=== PATIENT | male | born 1965 | race Caucasian/White ===

== ENCOUNTER 2016-08-25 10:29 | Observation (INO) | payer OTHER ==
[~2016-08-25] VITALS: Ht 177.8 cm; Wt 103.1 kg
[2016-08-25 11:15] LABS: HEMATOCRIT 43.5 % (42-52); MEAN CELL VOLUME 91.6 fL (80-100); MEAN CORPUSCULAR HEMOGLOBIN 31.8 pg (25-34); MEAN CORPUSCULAR HGB CONC 34.7 g/dl (32-36); MEAN PLATELET VOLUME 9.6 fL (7.4-10.4); PLATELET COUNT 150 K/uL (130-400); RED BLOOD COUNT 4.75 M/uL (4.7-6.1)
--- NOTE | 2016-08-25 11:24 | DIAGNOSTIC IMAGING REPORT ---
CHEST ONE VIEW PORTABLE CLINICAL HISTORY: ed dyspnea COMPARISON STUDY: No previous studies for comparison. FINDINGS: The bones soft tissues and hemidiaphragms are normal. The cardiomediastinal silhouette is normal. The lungs are clear. The pulmonary vasculature is normal. IMPRESSION: Negative chest. Electronically signed by: Gaurang Lopez M.D. 08/25/2016 11:22 AM Dictated Date/Time: 08/25/2016 11:18 AM
[2016-08-25 11:27] LABS: PROTHROMBIN TIME (PATIENT) 10.4 SECONDS (9.0-12.0)
[2016-08-25 11:36] LABS: BUN/CREATININE RATIO 19.4 (10-20); CALCIUM 8.3 mg/dl (8.5-10.1); CREATININE 0.92 mg/dl (0.60-1.40); POTASSIUM 3.8 mmol/L (3.5-5.1)
[2016-08-25 11:44] LABS: ALB/GLOB RATIO 1.3 (0.9-2)
[2016-08-25] MEDS ORDERED: ESCI1TAB10 PO (11:54)
[2016-08-25] MEDS ORDERED: ATOR10TA82 PO (11:54)
[2016-08-25] MEDS ORDERED: VST25HP (11:54)
[2016-08-25] MEDS ORDERED: LISI-461 PO (11:54)
[2016-08-25] MEDS ORDERED: ASPI325T39 PO (11:54)
[2016-08-25] MEDS ORDERED: SODIUM CHLORIDE 0.9% 1000ML 1,000 ML IV STA (11:55)
[2016-08-25] MEDS ORDERED: MoRPHine SULFATE 2 MG/ML CARP IV STA (11:55)
[2016-08-25] MEDS ORDERED: ONDANSETRON INJ 2 MG/ML 2 ML VIAL IV STA (11:55)
[2016-08-25] MEDS ORDERED: ALUMINUM/MAGNESIUM/SIMETH (MAALOX MAX) 30 ML UDC PO PRN (12:45)
[2016-08-25] MEDS ORDERED: NITROGLYCERIN 0.4 MG SL PER TAB CHARGE SL PRN (12:45)
[2016-08-25] MEDS ORDERED: MAGNESIUM HYDROXIDE SUSP 30 ML UDC PO PRN (12:45)
[2016-08-25] MEDS ORDERED: POLYETHYLENE (MIRALAX) 17 GM PACK PO PRN (12:45)
[2016-08-25] MEDS ORDERED: ACETAMINOPHEN 325 MG TAB PO PRN (12:45)
[2016-08-25] MEDS ORDERED: ZOLPIDEM TARTRATE 5 MG TAB PO PRN (12:45)
[2016-08-25 13:28] VITALS: O2SAT 98; Ht 177.8 cm; Wt 103.1 kg
--- NOTE | 2016-08-25 13:36 | HISTORY & PHYSICAL EXAMINATION ---
DATE OF ADMISSION: 08/25/2016 ADMISSION CHIEF COMPLAINT: Chest pain. HISTORY OF PRESENT ILLNESS: The patient is a 50-year-old who is in [facility], came accompanied by present guards complaining of pain, started this morning. As per patient, he states that pain woke him up from sleep around 7:00 a.m. and since then he has this substernal chest heaviness, he graded as an 8/10 in intensity. Pain is referred to his left shoulder and arm. Pain is accompanied by palpitation, diaphoresis, shortness of breath and worsened by taking deep breath, also has some dizziness with the pain that currently resolved. EKG at the shelter was good. He was brought by ambulance, received nitroglycerin that states that improved the pain, but did not completely take it off. In ED, he received another nitroglycerin which led to his blood pressure to drop slightly systolic was 80 but came back within 5 minutes. Admits to having chills last night. Other than that, no any associated symptoms. No relieving factors. REVIEW OF SYSTEMS: No headache, double vision, blurry vision. No cough, wheezing, shortness of breath, no diarrhea, blood in the stool, no burning in the urine or blood. No vomiting or nausea. No focal weakness, tingling, numbness. Rest of the review of system is negative. PAST MEDICAL HISTORY: Hypertension, seizure disorder, drug abuse, depression, dyslipidemia, rotator cuff syndrome and nonspecific abdominal pain. ALLERGIES: TRAMADOL, TORADOL, PROZAC, SEROQUEL AND LARGE DOSES OF IBUPROFEN BUT HE STATED HE TAKES SMALL DOSES OF IBUPROFEN NEEDED. FAMILY HISTORY: His father did have a single CABG at age 40 and then at age 50, had a triple CABG. Also, he had an aunt that had diabetes. SOCIAL HISTORY: He is a current smoker, does not drink alcohol. MEDICATIONS: Aspirin, Lipitor 10 mg, Lexapro 20 mg and lisinopril 10 mg. PHYSICAL EXAMINATION: HEENT: No jaundice, no pallor with mucous membranes. NECK: Supple. HEART: S1, S2 normal. No gallop, rub or murmur. LUNGS: Clear to auscultation bilaterally. Normal chest wall expansion. ABDOMEN: Soft, nontender, nondistended. NEUROLOGIC: Awake, alert, oriented to time, place, and person. Moves all extremities. Sensation intact. Cranial nerves II-XII appear to be intact. VITAL SIGNS: Temperature 37, heart rate is 60, respirations 18, blood pressure 120/67, saturation 95% on room air. LABORATORY DATA: White blood cell count 4.4, hemoglobin is 15 and platelet count is 150. Creatinine 0.9, BUN is 18. Total bilirubin is 0.3. Sodium is 143, potassium is 3.8. First set of troponin is negative. IMAGING DATA: Chest x-ray was obtained and showed no acute event. EKG was normal sinus rhythm with nonspecific ST-T wave changes. ASSESSMENT: 1. Chest pain, rule out acute coronary syndrome. 2. Hypertension. 3. Dyslipidemia. 4. Depression. 5. Seizure disorder. PLAN: 1. Admit patient to telemetry. 2. N.p.o. from midnight. 3. Start aspirin and statin. 4. Serial cardiac enzymes. 5. Sublingual nitroglycerin as needed. 6. Morphine IV for pain. 7. Cardiology consult. Plan n.p.o. from midnight for possible stress test in a.m. 8. Pepcid for GI prophylaxis and heparin for DVT prophylaxis. 9. Obtain lipids and hemoglobin A1c to stratify his risk. 10. Obtain labs in a.m. 11. Obtain D-dimer to rule out PE. JEAN
[2016-08-25] MEDS ORDERED: IV FLUIDS COMPLETED PRN (13:45)
[2016-08-25] MEDS: MoRPHine SULFATE 2 MG/ML CARP IV PRN ×5 (14:11→23:03)
[2016-08-25 14:34] VITALS: BP 106/69; PULSE 60; TEMP 36.8; O2SAT 97
[2016-08-25] MEDS: FAMOTIDINE IV INJ 20 MG in DEXTROSE 5% 100ML 100 ML IV SCH (15:27)
[2016-08-25] MEDS: SODIUM CHLORIDE 0.9% 1000ML 1,000 ML IV SCH (15:27)
[2016-08-25] MEDS: NITROGLYCERIN 2% OINTMENT 30GM TUBE EXT SCH ×2 (15:28→21:08)
[2016-08-25] MEDS ORDERED: METOPROLOL TARTRATE 25 MG TAB PO ONE (15:30)
[2016-08-25 15:42] VITALS: BP 110/75; PULSE 56; TEMP 36.6; O2SAT 96
[2016-08-25 16:00] VITALS: O2SAT 96
[2016-08-25] MEDS ORDERED: ENOXAPARIN 40 MG/0.4 ML SYR SC SCH (16:00)
--- NOTE | 2016-08-25 19:33 | CARDIOLOGY CONSULTATION REPORT ---
DATE OF CONSULTATION: 08/25/2016 REASON FOR CONSULTATION: 1. Chest pressure x 7.5 hours. 2. Dyslipidemia. 3. Hypertension. 4. Strong family history of premature CAD. HISTORY OF PRESENT ILLNESS: Mr. Underwood is a 50-year-old white male, currently incarcerated at [facility], who presents acutely today through the Emergency Room with a complaint of chest pain. This is described as a heaviness in his anterior chest, which seems to radiate to his left arm and shoulder, and he has noted some associated diaphoresis. This discomfort awakened him from sleep at approximately 0700 and has been persistent throughout the day. The pain is made worse by taking a deep breath, but it is not worsen with exertion. He did receive sublingual nitroglycerin x1 dose, which did not seem to help his discomfort. He received a second dose of nitroglycerin, which resulted in a headache and some hypotension. He continues to have the chest discomfort at the present time. Thus far his EKG shows normal sinus rhythm, no acute changes. His initial troponin I level is less than 0.030 ng/mL with a total CK of 100 and a CK-MB of 1.0. The patient offers no other complaints. He denies any fevers recently, but he did have chills last evening. He denies any cough or sputum production. No hemoptysis. He denies any orthopnea or PND. No syncope or near syncope. PAST MEDICAL HISTORY: 1. Longstanding Hypertension. 2. Dyslipidemia, on long-term statins for approximately 10 years. 3. Seizure disorder. 4. History of drug abuse. 5. Depression. 6. Ongoing nicotine dependence. 7. Obesity. SOCIAL HISTORY: The patient is currently incarcerated at [facility]. He smokes approximately 8-10 cigarettes per day. Does not drink alcohol at the present time. No current drug use. FAMILY HISTORY: Father had single vessel CABG at the age of 40, then had CABG x 3 vessels at the age of 50. He had an aunt with type 2 diabetes mellitus. MEDICATIONS: 1. Aspirin 325 mg daily. 2. Lipitor 10 mg daily. 3. Lexapro 20 mg a day. 4. Lisinopril 10 mg daily. 5. Lovenox 40 mg subcutaneous injection q.24 hours. 6. Nitroglycerin ointment 2% 1 inch applied to the anterior chest wall q.6 hours. 7. IV Pepcid 20 mg q.12 hours. 8. Tylenol 650 mg p.o. q.4 hours p.r.n. for pain or fever. 9. Maalox Max p.r.n. 10. Milk of magnesia p.r.n. 11. Ambien 5 mg at bedtime p.r.n. for sleep. 12. Sublingual nitroglycerin 0.4 mg as directed. 13. Morphine sulfate 2 mg IV q.30 minutes p.r.n. for chest pain. 14. MiraLax 17 g daily as needed for constipation. 15. Normal saline at 50 mL per hour. ALLERGIES: 1. Doxepin. 2. Fluoxetine. 3. Ibuprofen. 4. Ketorolac. 5. Seroquel. 6. Tramadol. PHYSICAL EXAMINATION: VITAL SIGNS: Temperature is 36.8 degrees Celsius, pulse is 60 and regular, respiratory rate is 14 and unlabored, blood pressure is 106/69, SpO2 is 97% on room air. GENERAL: The patient is in no acute distress. HEENT: Head is atraumatic, normocephalic. EOMs intact. Sclerae are anicteric. Face is symmetric. No perioral cyanosis. Mucous membranes moist. NECK: Without thyromegaly, adenopathy or JVD. Carotid upstrokes +2 bilaterally without bruits. CHEST AND LUNGS: Clear to auscultation throughout all lung ross. No wheezes, rales or rhonchi. CARDIOVASCULAR: S1 and S2 are regular, distant, without obvious murmur, gallop or rub. PMI is nonpalpable. No lifts, heaves, or thrills. No abdominal, aortic or renal bruits. ABDOMEN: Bowel sounds present. No masses, organomegaly, or tenderness. EXTREMITIES: Without clubbing, cyanosis or edema. Intact radial and posterior tibial pulses bilaterally. NEUROLOGIC: The patient is awake, alert and oriented. Pleasant and cooperative. Answers questions appropriately. Speech is clear. Normal movement in all 4 extremities. Gait pattern not assessed. EKG on admission shows normal sinus rhythm with a rate of 66 beats per minute, nonspecific T-wave abnormality in leads III and aVF. No acute changes. Current telemetry monitoring reveals sinus rhythm with sinus bradycardia. No significant ectopy present. Chest x-ray shows no acute cardiopulmonary process. LABORATORIES: Sodium is 143 mmol/L, potassium 3.8 mmol/L, BUN 18 mg/dL, and creatinine is 0.92 mg/dL. Random glucose 97 mg/dL. LFTs are unremarkable. Total CK is 100 with a CK-MB of 1.0 ng/mL. Point of care troponin I is less than 0.030 ng/mL. White blood cell count is 4.40, hemoglobin 15.1 g/dL, hematocrit 43.5%, and platelet count 150,000. ASSESSMENT: 1. Anterior chest pressure with associated diaphoresis and radiation to the left shoulder and arm x > 7 hours with negative initial cardiac enzymes. 2. His chest discomfort has a pleuritic component to it. 3. No acute changes on EKG. 4. Hypertension. 5. Well controlled dyslipidemia per patient. Has been on long-term statin therapy. 6. Nicotine dependence. 7. Family history of premature coronary artery disease. PLAN: 1. The patient has been admitted to the telemetry floor for acute chest pain, rule out acute coronary syndrome. 2. Monitor serial cardiac enzymes. 3. Serial EKGs. 4. Continue Lipitor 10 mg a day. 5. Continue Lisinopril 10 mg daily. 6. Continue topical nitrates for the time being. 7. Recommend Aspirin 325 mg daily and he should also continue on at least a baby Aspirin daily thereafter for primary prevention. 8. Add low-dose beta-charlene - Lopressor 25 mg bid. 9. If cardiac enzymes remain negative, and EKG show no acute changes, will recommend a stress echocardiogram to further evaluate for myocardial ischemia tomorrow; however, if he has any dynamic EKG changes, or a bump in his cardiac enzymes, would strongly consider cardiac catheterization based on his family history and tobacco use. 10. We will continue to closely follow. JEAN
[2016-08-25 19:49] VITALS: BP 99/67; PULSE 55; TEMP 36.9; O2SAT 94
[2016-08-25] MEDS: METOPROLOL TARTRATE 25 MG TAB PO SCH (21:00)
--- NOTE | 2016-08-25 22:11 | EMERGENCY ROOM VISIT NOTE ---
ED Visit Note First contact with patient: 11:41 Chief Complaint: Chest pain. History of Present Illness: Mr. Underwood is a 50 year-old white male who is brought into the ED via ambulance accompanied by 2 long-term guards complaining of chest pain. Historically patient reports he personally does not have a history of heart disease but he does have hypertension, dyslipidemia and is a smoker. He reports his father had his first PR at age 40 and required a single CABG and at age 56 required a triple CABG. Patient reports he has been generally feeling well the last few days. He did report last evening he had some mild nausea and reports he had a few episodes of diaphoresis. This morning approximately 7:30 AM he reports he was sleeping and was awoken from sleep with an acute onset of midsternal chest pain. His onset was approximately 3 hours before he arrived in the emergency department. Since that time his pain has been constant. He describes his pain as if someone is standing on his chest and pressure. His pain is radiating into the left chest and left shoulder. He has not identified any aggravating or alleviating factors related to the pain. While at the long-term and during transport he received 2 sublingual mitral glycerin tablets and aspirin without relief of his discomfort. Currently associated with his pain he reports he is nauseated but has not vomited. Patient denies fevers, chills, sweats, skin eruptions, skin color changes, upper respiratory tract symptoms, wheezing, cough, shortness of breath, orthopnea, dependent edema, previous clots, claudication, cramping, recent surgery/inactivity/extended travel, abdominal pain, diarrhea, constipation, rectal bleeding, black/tarry stools, urinary symptoms, back/flank pain. Review of Systems: As noted above in history of present illness. All body systems were reviewed and found to be negative as noted above. Past Medical History: As previously noted, nonspecific abdominal pain, rotator cuff syndrome, seizure disorder, cannabis/cocaine/opiate abuse, depression. Current Medications: Medications Dose Route/Sig Max Daily Dose Days Date Category Lexapro (Escitalopram Oxalate) 20 Mg Tab 20 Mg PO DAILY 08/25/16 Reported Hydroxyzine Pamoate (Hydroxyzine HCl) 25 Mg Tab BID 08/25/16 Reported Zestril (Lisinopril) 10 Mg Tab 10 Mg PO 08/25/16 Reported Lipitor (Atorvastatin Calcium) 10 Mg Tab 1 Tab PO DAILY 30 08/25/16 Reported Aspirin Ec (Aspirin) 325 Mg Tab 325 Mg PO 08/25/16 Reported Allergies to Medications: Tramadol, Toradol, Prozac, Seroquel, ibuprofen. Social History: Patient is currently incarcerated; he admits to tobacco use. Physical Examination: Vital Signs: Date Time Temp Pulse Resp B/P (MAP) Pulse Ox O2 Delivery O2 Flow Rate FiO2 08/25/16 12:49 53 21 98 08/25/16 12:34 53 18 97 08/25/16 12:31 101/75 08/25/16 12:19 57 23 93 08/25/16 12:04 61 25 97 08/25/16 12:01 105/73 08/25/16 11:54 108/76 08/25/16 11:53 60 14 108/76 98 08/25/16 11:49 70 22 96 08/25/16 11:44 62 19 95 08/25/16 11:32 89/66 08/25/16 11:29 60 24 97 08/25/16 11:14 60 26 95 08/25/16 11:13 95 Room Air 08/25/16 11:13 37.0 62 18 110/67 95 Room Air 08/25/16 11:10 97 Room Air 08/25/16 11:01 105/67 08/25/16 10:59 63 18 08/25/16 10:44 66 12 94 08/25/16 10:37 66 08/25/16 10:33 110/67 GENERAL: 50-year-old male in mild distress due to pain, nontoxic-appearing, afebrile and hemodynamically stable. NEUROLOGICAL: Awake, alert and oriented to person, place and time. Answering questions appropriately and following commands. Normal gait. Good hand eye coordination. SKIN: Warm, dry and pink. No soft tissue eruptions or trauma noted. HEENT: Atraumatic and normocephalic. PERRLA. Sclera white and conjunctiva pink. Oral cavity moist and pink. Airway is patent. Pharynx is nonerythematous or edematous. Speech normal. No lymphadenopathy. Trachea midline. No jugular venous distention. No carotid bruits. BACK: No tenderness over the bony spine. No CVA tenderness. THORAX: Lungs sounds are clear to auscultation and equal bilaterally with symmetrical chest wall. No wheezing, rales or rhonchi. No crepitus, tenderness , subcutaneous air or deformities noted. HEART: Regular rate and rhythm. No gallops, rubs or murmurs are appreciated. No lifts, heaves or thrills. PMI is not displaced. ABDOMEN: Flat, soft and nontender. Positive bowel sounds in all quadrants. No guarding, rigidity or organomegaly. EXTREMITIES: Moves all extremities well on command and with purpose. All distal neurovascular statuses are intact and equal bilaterally. No dependent edema or calf tenderness/cords. ED Course: Patient is assessed as noted above. Patient's medication list was reviewed. Laboratory Testing: Test 08/25/16 10:55 08/25/16 11:05 Range/Units White Blood Count 4.40 4.8-10.8 K/uL Red Blood Count 4.75 4.7-6.1 M/uL Hemoglobin 15.1 14.0-18.0 g/dL Hematocrit 43.5 42-52 % Mean Corpuscular Volume 91.6 80-100 fL Mean Corpuscular Hemoglobin 31.8 25-34 pg Mean Corpuscular Hemoglobin Concent 34.7 32-36 g/dl RDW Standard Deviation 46.1 36.4-46.3 fL RDW Coefficient of Variation 13.7 11.5-14.5 % Platelet Count 150 130-400 K/uL Mean Platelet Volume 9.6 7.4-10.4 fL Prothrombin Time 10.4 9.0-12.0 SECONDS Prothromb Time International Ratio 1.0 0.9-1.1 Activated Partial Thromboplast Time 25.7 21.0-31.0 SECONDS Partial Thromboplastin Ratio 1.0 Sodium Level 143 136-145 mmol/L Potassium Level 3.8 3.5-5.1 mmol/L Chloride Level 111 98-107 mmol/L Carbon Dioxide Level 24 21-32 mmol/L Anion Gap 8.0 3-11 mmol/L Blood Urea Nitrogen 18 7-18 mg/dl Creatinine 0.92 0.60-1.40 mg/dl Est Creatinine Clear Calc Drug Dose 116.7 ml/min Estimated GFR () 112.8 Estimated GFR (Non- 97.3 BUN/Creatinine Ratio 19.4 10-20 Random Glucose 97 70-99 mg/dl Calcium Level 8.3 8.5-10.1 mg/dl Total Bilirubin 0.3 0.2-1 mg/dl Aspartate Amino Transf (AST/SGOT) 20 15-37 U/L Alanine Aminotransferase (ALT/SGPT) 42 12-78 U/L Alkaline Phosphatase 69 45-117 U/L Total Creatine Kinase 100 39-308 U/L Creatine Kinase MB 1.0 0.5-3.6 ng/ml Creatine Kinase MB Ratio 1.0 0-3.0 Total Protein 6.7 6.4-8.2 gm/dl Albumin 3.8 3.4-5.0 gm/dl Globulin 2.9 2.5-4.0 gm/dl Albumin/Globulin Ratio 1.3 0.9-2 Bedside Troponin I < 0.030 0-0.045 ng/ml Chest X-Ray: Was read by myself and the radiologist showing no acute infiltrates , effusions or pneumothorax. Normal heart silhouette and bony anatomy. No vascular changes. No previous to compare. EKG: Was read by myself and reviewed with Dr. Kennedy; shows normal sinus rhythm with ventricular rate of 66 bpm. Normal axis, intervals and complexes. No acute ST changes indicating ischemia, injury and infarction. This was compared to previous EKGs from the long-term and during transport no acute changes were noted. On arrival to the ED patient received 1 0.4 mg sublingual nitroglycerin tablet; he reported no relief of his discomfort but he did receive a mild headache. Patient was hydrated with normal saline and was given 2 mg of morphine IV for pain and 4 mg of Zofran IV for nausea. Patient was reassessed multiple times during his stay in the emergency department. Patient's case was reviewed with Dr. Kennedy; we agreed on diagnostic approach , treatment, disposition and plan. Patient's case was consulted with case management and Dr. Bunch, hospitalist ; for medical observation/admission. Patient was educated about today's findings. Clinical Impression: Acute chest pain. Decision-Making: Initially my differential diagnosis I considered acute coronary syndrome, thoracic aneurysm, pneumothorax, pneumonia, pulmonary embolism, musculoskeletal disorder and other causes. Disposition and Plan: Patient be brought in the hospital for observation/ admission for further evaluation of his chest pain.
[2016-08-25 23:11] VITALS: BP 120/80; PULSE 53; TEMP 36.5; O2SAT 96
[2016-08-26] MEDS: MoRPHine SULFATE 2 MG/ML CARP IV PRN ×8 (01:06→16:26)
[2016-08-26 02:13] VITALS: BP 102/58; PULSE 55
--- NOTE | 2016-08-26 02:26 | Progress Note ---
Progress Note Date of Service Aug 26, 2016. Progress Note I was paged at approximately 1:00 to notify me that the patient was continuing to have chest pain similar to that on arrival. I requested a repeat EKG be done and I would arrive at the bedside to assess the patient. Patient states that his chest pain is unchanged when he arrived. He describes a pressure pain, mid sternum, going up to the left shoulder. He notes that he gets worse with changing position, or twisting shoulders. All vital signs were stable, patient was not hypoxic S1 and S2 were normal no added sounds or murmurs. Mild tenderness was noted in the pectoral muscle towards the left shoulder, otherwise no tenderness EKG was reviewed: Bradycardia, otherwise normal sinus rhythm EKG was compared to that on arrival and no change was noted school lunch monitor was reviewed, there were no arrhythmias Troponins have been negative 2. Last troponin was drawn yesterday at 1850. Next trop due 0645. There are no new EKG changes and troponins of been negative so far, therefore I will continue to observe the patient at this time. If troponins come back positive, we can start a heparin infusion. It is noted on his record that he will have stress testing tomorrow. I will continue to follow.
[2016-08-26 02:36] LABS: BASO % 0.5 %; BASO ABS # 0.03 K/uL (0-0.2); COMPLETE YES; EOS % 2.6 %; HEMATOCRIT 43.7 % (42-52); IG% 0.3 %; LYMPH % 43.9 %; LYMPH ABS # 2.54 K/uL (1.2-3.4); MEAN CELL VOLUME 93.2 fL (80-100); MEAN CORPUSCULAR HEMOGLOBIN 30.5 pg (25-34); MEAN CORPUSCULAR HGB CONC 32.7 g/dl (32-36); MEAN PLATELET VOLUME 9.4 fL (7.4-10.4); MONO % 7.3 %; NEUT % 45.4 %; PLATELET COUNT 151 K/uL (130-400); RED BLOOD COUNT 4.69 M/uL (4.7-6.1); WHITE BLOOD COUNT 5.79 K/uL (4.8-10.8)
[2016-08-26] MEDS: FAMOTIDINE IV INJ 20 MG in DEXTROSE 5% 100ML 100 ML IV SCH (03:07)
[2016-08-26] MEDS: NITROGLYCERIN 2% OINTMENT 30GM TUBE EXT SCH ×2 (03:07→10:29)
[2016-08-26 03:11] LABS: ALB/GLOB RATIO 1.2 (0.9-2); ALKALINE PHOSPHATASE 65 U/L (45-117); ALT/SGPT 41 U/L (12-78); AST/SGOT 17 U/L (15-37); BLOOD UREA NITROGEN 16 mg/dl (7-18); CALCIUM 8.1 mg/dl (8.5-10.1); CARBON DIOXIDE 28 mmol/L (21-32); CHLORIDE 112 mmol/L (98-107); CHOLESTEROL 187 mg/dl (0-200); CHOLESTEROL/HDL RATIO 4.1; GLUCOSE 103 mg/dl (70-99); HDL CHOLESTEROL 46 mg/dl; LDL CHOLESTEROL CALCULATED 110 mg/dl; MAGNESIUM 2.3 mg/dl (1.8-2.4); PHOSPHORUS 3.5 mg/dl (2.5-4.9); POTASSIUM 4.9 mmol/L (3.5-5.1); SODIUM 145 mmol/L (136-145); TRIGLYCERIDES 155 mg/dl (0-150); VERY LOW DENSITY LIPOPROT CALC 31 mg/dl
[2016-08-26 03:17] VITALS: BP 103/65; PULSE 71; TEMP 36.8; O2SAT 93
[2016-08-26 06:42] LABS: ESTIMATED AVERAGE GLUCOSE 114 mg/dl; HA1C FLAG Normal (Normal)
[2016-08-26 07:12] VITALS: BP 108/69; PULSE 50; TEMP 36.6; O2SAT 94
[2016-08-26] MEDS: METOPROLOL TARTRATE 25 MG TAB PO SCH (07:40)
[2016-08-26] MEDS: SODIUM CHLORIDE 0.9% 1000ML 1,000 ML IV SCH (08:39)
[2016-08-26] MEDS ORDERED: ATORVASTATIN 10 MG TAB PO SCH (09:00)
[2016-08-26] MEDS ORDERED: LISINOPRIL 10 MG TAB PO SCH (09:00)
[2016-08-26] MEDS ORDERED: ESCITALOPRAM OXALATE 20 MG TAB PO SCH (09:00)
[2016-08-26] MEDS ORDERED: ASPIRIN 325 MG ECTAB PO SCH (09:00)
[2016-08-26] MEDS ORDERED: ZONI100C39 PO (09:10)
--- NOTE | 2016-08-26 10:55 | CARDIOLOGY PROGRESS NOTE ---
DATE: 08/26/2016 This morning Mr. Underwood continues to have an element of chest discomfort, as described it was precordial as well as left lateral. The symptoms had waxed and waned over the past 24 hours without resolve. The narcotic administration seems to have had some effect but once again did not resolve his symptoms entirely. There is an element of pleuritic discomfort with deep inspiration. Movements also seem to affect the symptom. PHYSICAL EXAMINATION: GENERAL: He is alert and oriented. His mood and affect appear normal. He answers all questions appropriately. CURRENT VITAL SIGNS: Include blood pressure of 108/69 with a pulse of 50. LUNGS: Auscultation of his lungs reveals the apices to be clear. CARDIAC: Did not reveal any rubs. LABORATORY STUDIES: Included serial cardiac biomarkers, all of which are less than detectable limit. IMPRESSION: Noncardiac chest pain. While the patient certainly has risk factors for coronary artery disease, the prolonged and unrelenting nature of his symptoms in the absence of elevated cardiac biomarkers precludes the diagnosis of coronary ischemia. EKG is also normal. He did not have any rub or abnormalities on his examination to suggest cardiac etiology. At this point, I would not advocate any additional cardiac testing and seek alternative explanation for his symptoms.
[2016-08-26] MEDS ORDERED: ZONISAMIDE 100 MG CAP PO ONE (11:45)
[2016-08-26 12:14] VITALS: BP 143/59; PULSE 53; TEMP 36.5; O2SAT 98
[2016-08-26] MEDS ORDERED: LPR25 PO (14:57)
[2016-08-26] MEDS ORDERED: RANITAB6 PO (14:57)
--- NOTE | 2016-08-26 15:01 | Discharge Instructions ---
Discharge Instructions Date of Service Aug 26, 2016. Admission Reason for Admission: Chest Pain Discharge Discharge Diagnosis / Problem: Chest pain-noncardiac Discharge Goals Goal(s): Improve disease control, Diagnostic testing, Therapeutic intervention Activity Recommendations Activity Limitations: resume your previous activity Lifting Limitations: none Exercise/Sports Limitations: none Shower/Bathe: no limitations . Instructions / Follow-Up Instructions / Follow-Up You were admitted for chest pain. You did not have a heart attack. You were seen by the Upfitter and no further testing was recommended. Your chest xray was normal and you did not have any evidence of a blood clot in your lungs. This may be related to acid reflux or esophageal spasm. You were started on metoprolol for your blood pressure and heart; you were started on Zantac for acid reflux. You should quit smoking, increase your exercise level, and work on weight loss. Please follow up with your primary care physician upon return to the alf. Current Hospital Diet Patient's current hospital diet: Regular Diet Discharge Diet Recommended Diet: AHA Diet (Heart Healthy) Procedures Procedures Performed: Chest xray Pending Studies Studies pending at discharge: no Laboratory Results Hemoglobin A1c Test 08/25/16 10:55 Range/Units Estimated Average Glucose 114 mg/dl Hemoglobin A1c 5.6 4.5-5.6 % Lipid Panel Test 08/26/16 02:25 Range/Units Triglycerides Level 155 H 0-150 mg/dl Cholesterol Level 187 0-200 mg/dl HDL Cholesterol 46 mg/dl Cholesterol/HDL Ratio 4.1 LDL Cholesterol, Calculated 110 mg/dl Medical Emergencies . Who to Call and When: Medical Emergencies: If at any time you feel your situation is an emergency, please call 911 immediately. . Non-Emergent Contact Non-Emergency issues call your: Primary Care Provider Call Non-Emergent contact if: your pain is not controlled, your pain is worsening, your pain is unusual for you, your pain is concerning you, you have any medication questions . . "Provider Documentation" section prepared by Katey Neville. . VTE Core Measure Inpt VTE Proph given/why not?: Enoxaparin (Lovenox)SQ
[2016-08-26 15:44] VITALS: BP 143/59; PULSE 53; TEMP 36.5; O2SAT 98
[2016-08-26 15:59] VITALS: BP 116/75; PULSE 63; TEMP 36.6; O2SAT 95
[2016-08-26] MEDS ORDERED: ZONISAMIDE 100 MG CAP PO SCH (21:00)
--- NOTE | 2016-08-27 00:16 | Discharge Summary ---
Discharge Summary Date of Service Aug 26, 2016. Discharge Summary Admission Date: Aug 25, 2016 at 12:54 Discharge Date: Aug 26, 2016 Discharge Disposition: Home (Nursing Home) Principal Diagnosis: Chest pain Problems/Secondary Diagnoses: HTN Hyperlipidemia Obesity Current smoker Procedures: Chest xray-negative Consultations: Cardiology Medication Reconciliation New Medications: Ranitidine Hcl (Zantac 150 Maximum Streng) 150 Mg Tab 1 TAB PO BID for 30 Days, #60 TAB Metoprolol Tartrate (Lopressor) 25 Mg Tab 12.5 MG PO BID for 30 Days Continued Medications: Aspirin (Aspirin Ec) 325 Mg Tab 325 MG PO Atorvastatin (Lipitor) 10 Mg Tab 1 TAB PO DAILY for 30 Days, #30 TAB 5 Refills Escitalopram Oxalate (Lexapro) 20 Mg Tab 20 MG PO DAILY, TAB Hydroxyzine HCl (Hydroxyzine Pamoate) 25 Mg Tab BID Lisinopril (Zestril) 10 Mg Tab 10 MG PO, TAB Zonisamide (Zonegran) 100 Mg Cap 300 MG PO BID, CAP Discharge Exam Still having some mild left sided chest pain that feels like a pressure but it is constant. All cardiac markers normal, ECGs normal. He was requesting morphine as often as possible which was concerning for malingering given his history of opioid abuse. He denies any other problems on the day of discharge. Review of Systems: Constitutional: No fever Eyes: No problem reported ENT: No problem reported Respiratory: No shortness of breath Cardiovascular: + chest pain, No edema Abdomen: No pain, No nausea, No vomiting Genitourinary - Male: No problem reported Neurologic: No problem reported Psychiatric: No problem reported Endocrine: No problem reported Hematologic / Lymphatic: No problem reported Integumentary: No problem reported Physical Exam: General Appearance: WD/WN, no apparent distress Eyes: normal inspection, sclerae normal ENT: hearing grossly normal Neck: supple, no JVD, no carotid bruits, trachea midline Respiratory/Chest: lungs clear, normal breath sounds, no respiratory distress, no accessory muscle use Cardiovascular: regular rate, rhythm, no edema, no gallop, no murmur Abdomen / GI: normal bowel sounds, non tender, soft, no organomegaly, no pulsatile mass Extremities: normal inspection, no calf tenderness, normal capillary refill , no pedal edema Neurologic/Psychiatric: no motor/sensory deficits, alert, normal mood/affect , oriented x 3 Skin: normal color, warm/dry, no rash Hospital Course The patient is a 50-year-old who is in [facility], came accompanied by guards complaining of substernal chest pain that woke him up from sleep around 7:00 a.m. and since then he has this substernal chest heaviness, he graded as an 8/10 in intensity. Pain is referred to his left shoulder and arm. Pain is accompanied by palpitation, diaphoresis, shortness of breath and worsened by taking deep breath, also has some dizziness with the pain. EKG at the [facility] was good. He was brought by ambulance, received nitroglycerin that states that mostly just gave him a headache. In ED, he received another nitroglycerin which led to his blood pressure to drop slightly systolic was 80 but came back within 5 minutes. Admits to having chills last night. Other than that, no any associated symptoms. No relieving factors. No cough or cold symptoms. No acid reflux. He had serially negative cardiac biomarkers and no significant event son telemetry monitoring. He consistently asked for morphine every time it was available again and it should be noted he has a diagnosis of opioid abuse previously. ECGs were normal and Cardiology evaluated the patient-they did not feel he warranted any further cardiac eval as he was having atypical chest pain and in setting of normal cardiac biomarkers with constant pain. D-dimer was negative and chest xray was normal. His chest pain may be GI related and he should continue taking Zantac upon discharge. He was started on metoprolol for improved blood pressure control. He was stable for discharge to [facility] as he had ruled out for ACS. He was encouraged to stop smoking and exercise. His HgbA1C was in the prediabetic range. He should remain on all his other home meds. Total Time Spent: Greater than 30 minutes This includes examination of the patient, discharge planning, medication reconciliation, and communication with other providers. Discharge Instructions Please refer to the electronic Patient Visit Report (Discharge Instructions) for additional information. Follow-Up PCP within 1-2 days Additional Copies To LEXIE Huntspeedy
== END 2016-08-26 18:00 ==
LOC: C.EDB 10:33 → C.2T 12:54 → ENRESERV 13:12
PROVIDERS: ADMIT Internal Medicine; ATTEND Family Medicine
DX: R07.9 Chest pain, unspecified (principal); I10 Essential (primary) hypertension; E78.5 Hyperlipidemia, unspecified; E66.9 Obesity, unspecified; F32.9 Major depressive disorder, single episode, unspecified; F17.200 Nicotine dependence, unspecified, uncomplicated; Z79.82 Long term (current) use of aspirin; Z83.3 Family history of diabetes mellitus; Z82.49 Family history of ischemic heart disease and other diseases of the circulatory system

== ENCOUNTER 2017-04-04 00:53 | Emergency (ER) | payer OTHER ==
[~2017-04-04] VITALS: Ht 177.8 cm; Wt 109.0 kg
[~2017-04-04 00:53] MED LIST: ASPI325T39 PO; ATOR10TA82 PO; ESCI1TAB10 PO; LISI-461 PO; LPR25 PO; VST25HP; ZONI100C39 PO
[2017-04-04 01:08] VITALS: BP 126/86; TEMP 37.2; Ht 177.8 cm; Wt 109.0 kg
[2017-04-04] MEDS ORDERED: OPTIRAY 320 IV PRN (01:30)
[2017-04-04 01:50] LABS: BASO % 0.2 %; BASO ABS # 0.01 K/uL (0-0.2); EOS % 2.1 %; EOS ABS # 0.13 K/uL (0-0.5); HEMATOCRIT 47.4 % (42-52); HEMOGLOBIN 16.7 g/dL (14.0-18.0); IG# 0.03 K/uL (0.00-0.02); LYMPH % 44.8 %; LYMPH ABS # 2.74 K/uL (1.2-3.4); MEAN CELL VOLUME 89.9 fL (80-100); MEAN CORPUSCULAR HEMOGLOBIN 31.7 pg (25-34); MEAN CORPUSCULAR HGB CONC 35.2 g/dl (32-36); MONO % 6.2 %; MONO ABS # 0.38 K/uL (0.11-0.59); NEUT % 46.2 %; NEUT ABS # 2.82 K/uL (1.4-6.5); PLATELET COUNT 152 K/uL (130-400); RED CELL DISTRIBUTION WIDTH CV 13.2 % (11.5-14.5); RED CELL DISTRIBUTION WIDTH SD 43.1 fL (36.4-46.3); WHITE BLOOD COUNT 6.11 K/uL (4.8-10.8)
[2017-04-04 02:08] LABS: ALBUMIN 4.3 gm/dl (3.4-5.0); CREATININE 1.09 mg/dl (0.60-1.40); POTASSIUM 3.7 mmol/L (3.5-5.1)
[2017-04-04] MEDS ORDERED: MoRPHine SULFATE 10 MG/ML CARP/VIAL IV STA (02:08)
[2017-04-04 02:10] LABS: TOTAL PROTEIN 7.8 gm/dl (6.4-8.2)
[2017-04-04] MEDS ORDERED: ATOR-22 PO (03:44)
[2017-04-04] MEDS ORDERED: ZNTT/150 PO (03:44)
[2017-04-04] MEDS ORDERED: ACET-1256 PO (03:44)
--- NOTE | 2017-04-04 04:41 | EMERGENCY ROOM VISIT NOTE ---
History First contact with patient: :14 Chief Complaint: ABDOMINAL PAIN Stated Complaint: RT SIDE ABD PAIN Nursing Triage Summary: right sided abdominal pain and bloating History of Present Illness The patient is a 51 year old male who presents to the Emergency Room with complaints of right-sided abdominal pain which began this evening. The patient states that the pain has been gradually worsening throughout the evening. He states the pain is sharp and worse with movement and deep breath. He rates the discomfort an 8/10. [facility] and reports his blood pressure was elevated. He states he has a history of some similar issues and was told at that time that he was having problems with his appendix. He never had surgery for this but did take a course of antibiotics. The patient denies any changes in bowel movements, urinary symptoms, nausea/vomiting or fevers. He denies any history of abdominal surgery. Review of Systems A complete 10 point review of systems was reviewed with the patient with pertinent positives and negatives as per history of present illness. All else were negative. Past Medical/Surgical History Medical Problems: (1) Chest pain (2) Hyperlipidemia (3) Hypertension (4) Seizure disorder Social History Smoking Status: Current Every Day Smoker Alcohol Use: none Drug Use: none Housing Status: other (correctional facility) Current/Historical Medications Scheduled Atorvastatin (Lipitor), 20 MG PO DAILY Lisinopril (Zestril), 10 MG PO DAILY Ranitidine (Zantac), 150 MG PO BID Zonisamide (Zonegran), 300 MG PO BID Scheduled PRN Acetaminophen (Tylenol), 1,000 MG PO TID PRN for Headache Physical Exam Vital Signs Date Time Temp Pulse Resp B/P (MAP) Pulse Ox O2 Delivery O2 Flow Rate FiO2 04/04/17 05:22 58 93 04/04/17 01:08 37.2 76 18 126/86 96 Room Air Physical Exam VITALS: Vitals are noted on the nurse's note and reviewed by myself. Vital signs stable. GENERAL: This is a 51-year-old male, in no acute distress, nondiaphoretic, well- developed well-nourished. SKIN: The skin was without rashes. EARS: External auditory canals clear, tympanic membranes pearly paige without erythema or effusion bilaterally. EYES: Pupils equal round and reactive to light and accommodation. MOUTH: Mucous membranes moist. Tonsils are not enlarged. Pharynx without erythema or exudate. NECK: Supple without nuchal rigidity. No lymphadenopathy. HEART: Regular rate and rhythm without murmurs gallops or rubs. LUNGS: Clear to auscultation bilaterally without wheezes, rales or rhonchi. ABDOMEN: Positive bowel sounds x 4. Soft, nondistended. Tenderness to palpation in the right mid to lower abdomen. No guarding or rebound tenderness. NEURO: Patient was alert and oriented to person place and time. Medical Decision & Procedures ER Provider Diagnostic Interpretation: CT ABDOMEN & PELVIS WITH CONTRAST: No evidence of acute inflammatory or obstructive process in the abdomen or pelvis to account for symptoms. No bowel obstruction, bowel wall thickening, ascites or free air. No evidence of acute appendicitis. Small fat-containing umbilical hernia. No associated inflammatory changes. Small left renal cysts. No hydronephrosis or ureteral calculus. Osseous degenerative changes and age-indeterminate compression fracture deformities in the visualized spine, most prominent at L3. Correlate clinically. Radiologist: Judith Hughes MD Laboratory Results 04/04/17 01:38 Red Blood Count 5.27, Mean Corpuscular Volume 89.9, Mean Corpuscular Hemoglobin 31.7, Mean Corpuscular Hemoglobin Concent 35.2, Mean Platelet Volume 10.0, Neutrophils (%) (Auto) 46.2, Lymphocytes (%) (Auto) 44.8, Monocytes (%) (Auto) 6.2, Eosinophils (%) (Auto) 2.1, Basophils (%) (Auto) 0.2, Neutrophils # (Auto) 2.82, Lymphocytes # (Auto) 2.74, Monocytes # (Auto) 0.38, Eosinophils # (Auto) 0.13, Basophils # (Auto) 0.01 04/04/17 01:38 Test 04/04/17 01:38 04/04/17 03:50 White Blood Count 6.11 K/uL (4.8-10.8) Red Blood Count 5.27 M/uL (4.7-6.1) Hemoglobin 16.7 g/dL (14.0-18.0) Hematocrit 47.4 % (42-52) Mean Corpuscular Volume 89.9 fL (80-100) Mean Corpuscular Hemoglobin 31.7 pg (25-34) Mean Corpuscular Hemoglobin Concent 35.2 g/dl (32-36) Platelet Count 152 K/uL (130-400) Mean Platelet Volume 10.0 fL (7.4-10.4) Neutrophils (%) (Auto) 46.2 % Lymphocytes (%) (Auto) 44.8 % Monocytes (%) (Auto) 6.2 % Eosinophils (%) (Auto) 2.1 % Basophils (%) (Auto) 0.2 % Neutrophils # (Auto) 2.82 K/uL (1.4-6.5) Lymphocytes # (Auto) 2.74 K/uL (1.2-3.4) Monocytes # (Auto) 0.38 K/uL (0.11-0.59) Eosinophils # (Auto) 0.13 K/uL (0-0.5) Basophils # (Auto) 0.01 K/uL (0-0.2) RDW Standard Deviation 43.1 fL (36.4-46.3) RDW Coefficient of Variation 13.2 % (11.5-14.5) Immature Granulocyte % (Auto) 0.5 % Immature Granulocyte # (Auto) 0.03 K/uL (0.00-0.02) Anion Gap 6.0 mmol/L (3-11) Est Creatinine Clear Calc Drug Dose 100.2 ml/min Estimated GFR () 91.2 Estimated GFR (Non- 78.7 BUN/Creatinine Ratio 19.6 (10-20) Calcium Level 9.0 mg/dl (8.5-10.1) Total Bilirubin 0.6 mg/dl (0.2-1) Aspartate Amino Transf (AST/SGOT) 16 U/L (15-37) Alanine Aminotransferase (ALT/SGPT) 40 U/L (12-78) Alkaline Phosphatase 68 U/L (45-117) Total Protein 7.8 gm/dl (6.4-8.2) Albumin 4.3 gm/dl (3.4-5.0) Globulin 3.5 gm/dl (2.5-4.0) Albumin/Globulin Ratio 1.2 (0.9-2) Lipase 139 U/L (73-393) Urine Color YELLOW Urine Appearance CLEAR (CLEAR) Urine pH 5.5 (4.5-7.5) Urine Specific Welcome <= 1.005 (1.000-1.030) Urine Protein NEG (NEG) Urine Glucose (UA) NEG (NEG) Urine Ketones NEG (NEG) Urine Occult Blood NEG (NEG) Urine Nitrite NEG (NEG) Urine Bilirubin NEG (NEG) Urine Urobilinogen NEG (NEG) Urine Leukocyte Esterase NEG (NEG) Medications Administered Medications (Trade) Dose Ordered Sig/Christina Route Start Time Stop Time Status Last Admin Dose Admin Morphine Sulfate (MoRPHine SULFATE INJ) 6 mg NOW STAT IV 04/04/17 02:08 04/04/17 02:09 DC 04/04/17 02:14 6 MG Medical Decision Differential diagnosis includes appendicitis, pancreatitis, bowel obstruction, colitis, kidney stone, gastroenteritis, among others. The patient is a 51-year-old male who presents today complaining of right-sided abdominal pain. Labs revealed no leukocytosis, anemia or concerning electrolyte abnormalities. Urinalysis was not suggestive of infection. CT of the abdomen and pelvis was performed and read by stat rad with no acute infectious or inflammatory findings within the abdomen or pelvis. Patient was informed of the findings. He [facility] He verbalized understanding of my assessment and treatment plan and was discharged home in good condition. Medication Reconcilliation Current Medication List: was personally reviewed by me Blood Pressure Screening Patient's blood pressure: Normal blood pressure Impression Primary Impression: Right sided abdominal pain Departure Information Dispostion Home / Self-Care Condition GOOD Referrals Becky OWEN (PCP) Patient Instructions My [facility] Additional Instructions You have been treated in the Emergency Department for your Abdominal Pain. Laboratory results and imaging studies have ruled out any emergent causes for your abdominal pain which would warrant admission or surgery. For pain control, you can use the following [id number] medicines (if >12 yo): - Regular strength (325mg/tab) Tylenol (acetaminophen) 2 tabs every 4-6 hours as needed. Do not exceed 12 tablets in a 24 hour period. Avoid taking more than 4 grams (4000 mg) of Tylenol per day. This includes any other sources of acetaminophen you may take on a regular basis. - Regular strength (200 mg/tab) Advil (ibuprofen) 1-2 tabs every 4-6 hours as needed. Do not exceed a dose of 3200 mg per day. Drink plenty of water and stay well hydrated. As with any trip to the Emergency Department, you should follow-up with your Primary Care Provider from today's visit. Return to the emergency department if your symptoms persist despite treatment plan outlined above or if the following symptoms occur: increased fevers, chills , worsening nausea/vomiting, blood in your stool or urine.
[2017-04-04 05:22] VITALS: PULSE 58; O2SAT 93
--- NOTE | 2017-04-04 09:18 | DIAGNOSTIC IMAGING REPORT ---
CT OF THE ABDOMEN AND PELVIS WITH CONTRAST CLINICAL HISTORY: Right lower quadrant abdominal pain. COMPARISON STUDY: None. TECHNIQUE: Following IV administration of 93 mL of Optiray-320, axial images of the abdomen and pelvis were obtained from the lung bases to the proximal femurs. Images were reviewed in the axial, sagittal, and coronal planes. IV contrast was administered without complication. A dose lowering technique was utilized adhering to the principles of ALARA. CT DOSE: 934.66 mGy.cm FINDINGS: Lung bases are unremarkable. There are several subacute to chronic left-sided rib fractures. No pneumatosis, free air or portal venous gas is present. The liver, spleen, adrenal glands and pancreas are unremarkable. Several subcentimeter bilateral renal lesions are too small to characterize but likely reflect cysts. There is no hydronephrosis. The caliber and wall thickness of small and large bowel are normal. The appendix is normal. A small fat-containing umbilical hernia is present. No lymphadenopathy is present. No ascites. Old lower thoracic and lumbar spine compression fractures are present. IMPRESSION: No acute process within the abdomen or pelvis. Normal appendix. Electronically signed by: Zenon Wong M.D. 04/04/2017 9:17 AM Dictated Date/Time: 04/04/2017 9:12 AM
== END 2017-04-04 05:23 | disposition home or self-care (01) ==
LOC: C.EDB 00:54
DX: R10.31 Right lower quadrant pain (principal); E78.5 Hyperlipidemia, unspecified; I10 Essential (primary) hypertension; G40.909 Epilepsy, unspecified, not intractable, without status epilepticus; F17.210 Nicotine dependence, cigarettes, uncomplicated; Z79.899 Other long term (current) drug therapy

== ENCOUNTER 2017-07-08 01:49 | Emergency (ER) | payer OTHER ==
[~2017-07-08] VITALS: Ht 177.8 cm; Wt 110.5 kg
[~2017-07-08 01:49] MED LIST changes: +ACET-1256 PO; -ASPI325T39 PO; +ATOR-22 PO; -ATOR10TA82 PO; -ESCI1TAB10 PO; -LPR25 PO; +RANI150T85 PO; -VST25HP
[2017-07-08 01:52] VITALS: TEMP 36.8; Ht 177.8 cm; Wt 110.5 kg
[2017-07-08] MEDS ORDERED: NITROGLYCERIN 2% OINTMENT 30GM TUBE EXT ONE (02:15)
[2017-07-08] MEDS ORDERED: SODIUM CHLORIDE 0.9% 1000ML 1,000 ML IV ONE (02:15)
[2017-07-08 02:27] LABS: BASO % 0.5 %; BASO ABS # 0.03 K/uL (0-0.2); EOS % 2.5 %; EOS ABS # 0.15 K/uL (0-0.5); HEMATOCRIT 45.7 % (42-52); HEMOGLOBIN 16.4 g/dL (14.0-18.0); IG# 0.02 K/uL (0.00-0.02); LYMPH % 43.1 %; LYMPH ABS # 2.55 K/uL (1.2-3.4); MEAN CORPUSCULAR HEMOGLOBIN 32.3 pg (25-34); MEAN CORPUSCULAR HGB CONC 35.9 g/dl (32-36); MEAN PLATELET VOLUME 9.8 fL (7.4-10.4); MONO % 6.9 %; MONO ABS # 0.41 K/uL (0.11-0.59); NEUT % 46.7 %; NEUT ABS # 2.75 K/uL (1.4-6.5); PLATELET COUNT 156 K/uL (130-400); RED CELL DISTRIBUTION WIDTH SD 42.7 fL (36.4-46.3); WHITE BLOOD COUNT 5.91 K/uL (4.8-10.8)
[2017-07-08 02:37] LABS: PTT PATIENT 24.3 SECONDS (21.0-31.0)
[2017-07-08 02:44] LABS: CALCIUM 8.6 mg/dl (8.5-10.1); CREATININE 0.93 mg/dl (0.60-1.40); POTASSIUM 3.9 mmol/L (3.5-5.1)
[2017-07-08 02:55] LABS: TOTAL PROTEIN 7.2 gm/dl (6.4-8.2)
[2017-07-08] MEDS ORDERED: MoRPHine SULFATE 4 MG/ML 1 ML CARP\\VIAL IV ONE (03:00)
[2017-07-08] MEDS ORDERED: GI COCKTAIL PO ONE (03:00)
[2017-07-08] MEDS ORDERED: LIDOCAINE HCL 2% VISC SOLN 20 ML UDC ONE (03:02)
[2017-07-08] MEDS ORDERED: ALUMINUM/MAGNESIUM SUSP 30 ML UDC ONE (03:02)
[2017-07-08] MEDS ORDERED: NAPR-1221 PO (03:12)
[2017-07-08 04:31] VITALS: BP 109/85
[2017-07-08 04:41] VITALS: PULSE 71; O2SAT 94
--- NOTE | 2017-07-08 06:37 | DIAGNOSTIC IMAGING REPORT ---
CHEST ONE VIEW PORTABLE CLINICAL HISTORY: Left-sided chest pain. COMPARISON STUDY: Chest radiograph August 25, 2016. FINDINGS: Left axillary surgical clips are noted. Postoperative findings within the distal right clavicle are noted. There is no pneumothorax or pleural effusion. There is no consolidation or evidence for pulmonary edema. Cardiomediastinal silhouette is normal. Incidental note is made of an old posterior left ninth rib fracture. IMPRESSION: No acute cardiopulmonary findings. Electronically signed by: Zenon Wong M.D. 07/08/2017 6:36 AM Dictated Date/Time: 07/08/2017 6:34 AM
--- NOTE | 2017-07-08 06:45 | EMERGENCY ROOM VISIT NOTE ---
History First contact with patient: 02:02 Chief Complaint: CHEST PAIN Stated Complaint: CHEST PAIN Nursing Triage Summary: Sharp chest pressure with radiation to left shoulder at 0030 onset. No other symptoms. No recent illness or chest injury. Denies dyspnea or nausea. Reproducable with palpation and inspiration per EMS. Staff at [facility] gave pt 4 baby aspirin and 2 sprays without relief. History of Present Illness The patient is a 51 year old male who presents to the Emergency Room with complaints of central and left-sided chest pain that began about 90 minutes ago. The patient states that he was watching television at the time of symptom onset. The patient is without shortness of breath or nausea. His discomfort does seem to worsen with certain movements and palpation in the chest wall. The patient is currently under the care of [facility]. The patient went to the [facility] where he reportedly had an abnormal EKG. The patient was given 4 baby aspirin and 2 sprays of nitroglycerin without relief of symptoms. He rates his discomfort as a sharp 8/10. He does report a past family history of cardiac disease. He is not having abdominal pain. Review of Systems More than 10 systems were reviewed and otherwise negative with the exception of history of present illness. Past Medical/Surgical History Medical Problems: (1) Chest pain (2) Hyperlipidemia (3) Hypertension (4) Seizure disorder Family History Family history of cardiac disease Social History Smoking Status: Current Every Day Smoker Alcohol Use: none Drug Use: none Housing Status: other Current/Historical Medications Scheduled Atorvastatin (Lipitor), 20 MG PO DAILY Lisinopril (Zestril), 10 MG PO DAILY Ranitidine (Zantac), 150 MG PO BID Zonisamide (Zonegran), 300 MG PO BID Scheduled PRN Acetaminophen (Tylenol), 1,000 MG PO TID PRN for Headache Physical Exam Vital Signs Date Time Temp Pulse Resp B/P (MAP) Pulse Ox O2 Delivery O2 Flow Rate FiO2 07/08/17 04:41 71 21 94 07/08/17 04:31 109/85 07/08/17 04:11 62 22 92 07/08/17 04:06 66 21 92 Room Air 07/08/17 04:01 112/67 07/08/17 03:36 65 22 91 07/08/17 03:31 112/83 07/08/17 03:06 65 29 93 07/08/17 03:01 116/73 07/08/17 02:50 66 07/08/17 02:49 69 18 93 07/08/17 02:31 107/83 07/08/17 02:19 70 25 92 Room Air 07/08/17 02:05 112/79 07/08/17 01:52 36.8 71 14 118/81 93 Room Air Physical Exam VITALS: Vitals are noted on the nurse's note and reviewed by myself. Vital signs stable. GENERAL: Well-developed, well-nourished, white male, who is in no acute distress and resting comfortably. Patient is cooperative with the examination. HEAD: Normocephalic atraumatic. HEART: Regular rate and rhythm without murmurs gallops or rubs. LUNGS: Clear to auscultation bilaterally without wheezes, rales or rhonchi. No retractions or accessory muscle use. ABDOMEN: Positive normal bowel sounds x 4. Soft, nontender, without masses or organomegaly. No guarding or rebound tenderness. MUSCULOSKELETAL: No muscle atrophy, erythema, or edema noted. Full range of motion in all extremities. NEURO: Patient was alert and oriented to person place and time. CN II through XII grossly intact Medical Decision & Procedures Laboratory Results 07/08/17 02:10 Red Blood Count 5.08, Mean Corpuscular Volume 90.0, Mean Corpuscular Hemoglobin 32.3, Mean Corpuscular Hemoglobin Concent 35.9, Mean Platelet Volume 9.8, Neutrophils (%) (Auto) 46.7, Lymphocytes (%) (Auto) 43.1, Monocytes (%) (Auto) 6.9, Eosinophils (%) (Auto) 2.5, Basophils (%) (Auto) 0.5, Neutrophils # (Auto) 2.75, Lymphocytes # (Auto) 2.55, Monocytes # (Auto) 0.41, Eosinophils # (Auto) 0.15, Basophils # (Auto) 0.03 07/08/17 02:10 Test 07/08/17 02:10 07/08/17 02:24 07/08/17 04:10 White Blood Count 5.91 K/uL (4.8-10.8) Red Blood Count 5.08 M/uL (4.7-6.1) Hemoglobin 16.4 g/dL (14.0-18.0) Hematocrit 45.7 % (42-52) Mean Corpuscular Volume 90.0 fL (80-100) Mean Corpuscular Hemoglobin 32.3 pg (25-34) Mean Corpuscular Hemoglobin Concent 35.9 g/dl (32-36) Platelet Count 156 K/uL (130-400) Mean Platelet Volume 9.8 fL (7.4-10.4) Neutrophils (%) (Auto) 46.7 % Lymphocytes (%) (Auto) 43.1 % Monocytes (%) (Auto) 6.9 % Eosinophils (%) (Auto) 2.5 % Basophils (%) (Auto) 0.5 % Neutrophils # (Auto) 2.75 K/uL (1.4-6.5) Lymphocytes # (Auto) 2.55 K/uL (1.2-3.4) Monocytes # (Auto) 0.41 K/uL (0.11-0.59) Eosinophils # (Auto) 0.15 K/uL (0-0.5) Basophils # (Auto) 0.03 K/uL (0-0.2) RDW Standard Deviation 42.7 fL (36.4-46.3) RDW Coefficient of Variation 13.0 % (11.5-14.5) Immature Granulocyte % (Auto) 0.3 % Immature Granulocyte # (Auto) 0.02 K/uL (0.00-0.02) Prothrombin Time 10.2 SECONDS (9.0-12.0) Prothromb Time International Ratio 1.0 (0.9-1.1) Activated Partial Thromboplast Time 24.3 SECONDS (21.0-31.0) Partial Thromboplastin Ratio 0.9 Anion Gap 6.0 mmol/L (3-11) Est Creatinine Clear Calc Drug Dose 118.3 ml/min Estimated GFR () 110.6 Estimated GFR (Non- 95.4 BUN/Creatinine Ratio 17.2 (10-20) Calcium Level 8.6 mg/dl (8.5-10.1) Total Bilirubin 0.5 mg/dl (0.2-1) Aspartate Amino Transf (AST/SGOT) 17 U/L (15-37) Alanine Aminotransferase (ALT/SGPT) 34 U/L (12-78) Alkaline Phosphatase 61 U/L (45-117) Total Protein 7.2 gm/dl (6.4-8.2) Albumin 4.0 gm/dl (3.4-5.0) Globulin 3.2 gm/dl (2.5-4.0) Albumin/Globulin Ratio 1.3 (0.9-2) Lipase 145 U/L (73-393) Thyroid Stimulating Hormone (TSH) 4.240 uIu/ml (0.300-4.500) Bedside D-Dimer 294 ng/mlFEU (0-450) Bedside Troponin I < 0.030 ng/ml (0-0.045) Medications Administered Medications (Trade) Dose Ordered Sig/Christina Route Start Time Stop Time Status Last Admin Dose Admin Sodium Chloride 1,000 ml @ 999 mls/hr Q1H1M ONCE IV 07/08/17 02:15 07/08/17 03:15 DC 07/08/17 02:32 999 MLS/HR Nitroglycerin (Nitroglycerin 2% Oint) 1 inch NOW ONCE EXT 07/08/17 02:15 07/08/17 02:18 DC 07/08/17 02:32 1 INCH Morphine Sulfate (MoRPHine SULFATE INJ) 4 mg NOW ONCE IV 07/08/17 03:00 07/08/17 03:01 DC 07/08/17 03:04 4 MG Al Hydroxide/Mg Hydroxide (Maalox Susp) 30 ml STK-MED ONCE .ROUTE 07/08/17 03:02 07/08/17 03:03 DC 07/08/17 03:07 30 ML Lidocaine HCl (Viscous Lidocaine 2% Soln) 20 ml STK-MED ONCE .ROUTE 07/08/17 03:02 07/08/17 03:03 DC 07/08/17 03:07 10 ML ECG Per My Interpretation Change: Normal sinus rhythm @73 bpm Normal ECG When compared with ECG of 26-AUG-2016 06:21, No significant change was found ED Course Physical exam and history were performed. Nursing notes, EMR, and Medication List were personally reviewed. Patient appears to have chest pain symptoms that began about 90 minutes ago. He reportedly had an abnormal EKG at the [facility] and was referred to the ER for further evaluation. IV access was established and labs are obtained. The patient was hydrated with normal saline. He is already received aspirin prehospital and was given 1 inch Nitropaste and 4 mg IV morphine. He was placed on a potline monitor. EKG performed here was normal sinus rhythm without ST elevation as above. Chest x-ray was performed and without acute process. The patient's blood work is as above and was reviewed. He does not have a significantly elevated white blood cell count, gross anemia, bandemia, or significant electrolyte imbalance. Lipase and transaminases are not diagnostic. Troponin 2 were both negative. D-dimer is negative. Review of the records shows the patient had a similar chest pain episode evaluated in the hospital about 1 year ago. He did not have any upward trend of his troponin and his EKG is essentially unchanged from that time. I discussed the case with my attending physician, and overall we feel the patient is well for discharge. Patient is to follow with the [facility] for further care and management. He was otherwise invited back to the ER with any new, worsening, or concerning symptoms. The chart was completed utilizing [employer] Speech Voice Recognition Software. Grammatical errors, random word insertions, pronoun errors, and incomplete sentences are an occasional consequence of this system due to software limitations, ambient noise, and hardware issues. Any formal questions or concerns about the content, text, or information contained within the body of this dictation should be directly addressed to the provider for clarification. . Medical Decision Differential diagnosis includes, but is not limited to: Myocardial infarction, dysrhythmia, pericarditis, pneumothorax, aortic aneurysm/dissection, DVT/PE, anxiety, GERD, PUD, electrolyte imbalance, thyroid disorder, pneumonia, bronchitis, pancreatitis, and others Impression Primary Impression: Non-cardiac chest pain Departure Information Dispostion Home / Self-Care Condition GOOD Referrals Becky OWEN (PCP) Forms Call Back Authorization, HOME CARE DOCUMENTATION FORM, IMPORTANT VISIT INFORMATION Patient Instructions My [facility] Additional Instructions You were seen and evaluated today on an emergency basis only. This is not a substitute for, or an effort to provide, complete comprehensive medical care. It is not possible to recognize and treat all injuries or illnesses in a single emergency department visit. For this reason it is recommended that you followup with the [facility] in the morning for recheck of your condition. You are welcome to return to the emergency department anytime with new, worsening, or concerning symptoms.
== END 2017-07-08 04:47 | disposition home or self-care (01) ==
LOC: EDBD 01:49 → C.EDB 01:51
DX: R07.89 Other chest pain (principal); E78.5 Hyperlipidemia, unspecified; I10 Essential (primary) hypertension; G40.909 Epilepsy, unspecified, not intractable, without status epilepticus; F17.210 Nicotine dependence, cigarettes, uncomplicated; Z79.899 Other long term (current) drug therapy